=== PATIENT | male | born 2000 | race Caucasian/White ===

== ENCOUNTER 2023-08-01 08:58 | Emergency (ER) | payer BC ==
[~2023-08-01] VITALS: Ht 182.8 cm; Wt 90.7 kg
[2023-08-01] MEDS ORDERED: LIDOCAINE 1% INJ 10 ML VIAL INJ ONE (09:15)
[2023-08-01] MEDS ORDERED: Tetanus/Diphtheria/Pertussis (Acell) ADULT Vaccine 0.5 ML IM ONE (09:15)
--- NOTE | 2023-08-01 09:34 | ED Upper Extremity ---
General Chief Complaint: Trauma-Non Activation Stated Complaint: NAIL THRU LT THUMB Nursing Triage Note: PT AMB TO [facility] 5 WITH CC OF NAIL IN LEFT THUMB. PT STATES THAT HE WAS USING A NAIL GUN 10 MINUTES AGO AND SHOT A NAIL THROUGH HIS LEFT THUMB. Source: patient Exam Limitations: no limitations History of Present Illness Date Seen by Provider: Aug 01, 2023 Time Seen by Provider: 09:05 Initial Comments This 22-year-old gentleman presents to the emergency room by private vehicle with a large nail through his distal left thumb. Injury occurred while using a nail gun about 15 minutes prior to arrival. He is not in extreme pain. There is no significant bleeding. He does not know when his last tetanus immunization was. He states this will not be a Workmen's Comp. case. Allergies and Home Medications Allergies Coded Allergies: No Known Drug Allergies (Unverified , 08/01/23) Patient Home Medication List Home Medication List Reviewed: Yes Review of Systems Constitutional: no symptoms reported Musculoskeletal: see HPI Skin: see HPI Psychiatric/Neurological: No Symptoms Reported Past Qjkrlmb-Pycxxy-Lhdgty Hx Patient Social History Tobacco Use?: No Substance use?: No Alcohol Use?: Yes Physical Exam Vital Signs Vital Signs - First Documented 08/01/23 09:03 Temp 36.2 Pulse 104 B/P (MAP) 135/78 (97) Pulse Ox 100 O2 Delivery Room Air Capillary Refill : Height, Weight, BMI Height: '" Weight: lbs. oz. kg; 27.00 BMI Method: Progress/Results/Core Measures Results/Orders My Orders Orders - OLIVIA MAJOR MD Lidocaine 1% Inj 10 Ml (Xylocaine 1% Inj (08/01/23 09:15) Dipht/Pertuss(Acell)/Tet Adult (Dipht/Pe (08/01/23 09:15) Sulfamethoxazole/Tmp Ds Tablet (Sulfamet (08/01/23 09:45) Finger(S) (08/01/23 09:31) Medications Given in ED Current Medications Medications Dose Ordered Sig/Kathy Route Start Time Stop Time Status Last Admin Dose Admin Diphtheria/ Tetanus/Acell Pertussis 0.5 ml ONCE ONCE IM 08/01/23 09:15 08/01/23 09:16 DC 08/01/23 09:20 0.5 ML Lidocaine HCl 10 ml ONCE ONCE INJ 08/01/23 09:15 08/01/23 09:16 DC 08/01/23 09:20 10 ML Trimethoprim/ Sulfamethoxazole 1 ea ONCE ONCE PO 08/01/23 09:45 08/01/23 09:46 DC 08/01/23 10:04 1 EA Vital Signs/I&O 08/01/23 09:03 Temp 36.2 Pulse 104 B/P (MAP) 135/78 (97) Pulse Ox 100 O2 Delivery Room Air Blood Pressure Mean: 97 Departure Impression Primary Impression: Foreign body finger Additional Impression: Puncture wound Disposition: 01 HOME, SELF-CARE Condition: Stable Departure-Patient Inst. Decision time for Depature: 10:10 Patient Instructions: Foreign Body in Skin ED, Taking care of cuts, scrapes, and puncture wounds Add. Discharge Instructions: Keep your wound clean and dry except for normal handwashing and showering for the next few days until the wound is close. Keep covered when in dirty environments or as long as wound is draining. Complete your antibiotics as prescribed. Monitor for signs of infection such as increasing redness, increasing swelling, puslike drainage, or fever. Return to care promptly if you have any concerns about infection. Elevating to the level of your heart should help with pain and swelling. You may take ibuprofen up to 600 mg every 6 hours as needed and/or Tylenol (acetaminophen) up to 1000 mg every 6 hours as needed. All discharge instructions reviewed with patient and/or family. Voiced understanding. Scripts Sulfamethoxazole/Trimethoprim (Bactrim Ds Tablet) 1 Each Tablet 1 EACH PO BID, #14 TAB Prov: OLIVIA MAJOR MD 08/01/23 OLIVIA MAJOR MD Aug 01, 2023 09:34
[2023-08-01] MEDS ORDERED: Sulfamethoxazole/Trimethoprim DS TABLET PO ONE (09:45)
--- NOTE | 2023-08-01 09:55 | Diagnostic Imaging Report ---
INDICATION: Left thumb pain 3 views of left thumb show no fracture, dislocation or other acute abnormalities. IMPRESSION: Negative left thumb Dictated by: Dictated on workstation # [id number]
[2023-08-01] MEDS ORDERED: SULF1TAB38 PO (10:15)
[2023-08-01 10:24] VITALS: BP 122/65
== END 2023-08-01 10:28 | disposition home or self-care (01) ==
LOC: ER 09:02
DX: S60.352A Superficial foreign body of left thumb, initial encounter (principal); Z23 Encounter for immunization; W45.0XXA Nail entering through skin, initial encounter
CPT/HCPCS: 73140; 90715